=== PATIENT | female | born 1960 | race Caucasian/White ===

== ENCOUNTER 2017-06-11 08:57 | Emergency (ER) | payer OTHER ==
[~2017-06-11] VITALS: Ht 160 cm; Wt 51.8 kg
[2017-06-11] MEDS ORDERED: SPIR25 PO (09:09)
[2017-06-11] MEDS ORDERED: ATEN25 PO (09:09)
[2017-06-11] MEDS ORDERED: FOLI0.4T30 PO (09:09)
[2017-06-11] MEDS ORDERED: METHOCARBAMOL 500 MG TABLET PO ONE (10:00)
[2017-06-11] MEDS ORDERED: TraMADol HCL 50 MG TABLET PO ONE (10:00)
[2017-06-11 11:00] VITALS: BP 136/61
== END 2017-06-11 11:19 | disposition home or self-care (01) ==
LOC: EMS 09:04
DX: M54.5 Low back pain (principal); I10 Essential (primary) hypertension; Z88.1 Allergy status to other antibiotic agents
CPT/HCPCS: 99283

== ENCOUNTER 2021-08-01 14:21 | Emergency (ER) | payer OTHER ==
[~2021-08-01] VITALS: Ht 160 cm; Wt 50.9 kg
[~2021-08-01 14:21] MED LIST: ATEN-73 PO; FOLI0.4T6 PO; SPIR-37 PO
[2021-08-01 18:21] VITALS: BP 154/67
== END 2021-08-01 18:28 | disposition home or self-care (01) ==
LOC: EMS 14:24
DX: I80.02 Phlebitis and thrombophlebitis of superficial vessels of left lower extremity (principal); I10 Essential (primary) hypertension
CPT/HCPCS: 93971; 99284; Z7502